=== PATIENT | male | born 1980 | race Caucasian/White ===

== ENCOUNTER 2017-11-22 17:19 | Inpatient (IN) | payer MEDICAID ==
[~2017-11-22] VITALS: Ht 182.9 cm; Wt 93.0 kg
[2017-11-22 17:26] VITALS: Ht 182.9 cm; Wt 93.0 kg
[2017-11-22 19:12] LABS: PLATELET COUNT 208 x10^3mcL (130-400)
[2017-11-22 19:20] LABS: RED CELL DISTRIBUTION WIDTH 22.6 % (11.5-14.5)
[2017-11-22 19:23] LABS: CALCIUM 8.2 mg/dL (8.5-10.1); CHLORIDE SERUM 94 mmol/L (98-107); CREATININE SERUM 0.9 mg/dL (0.7-1.3); GFR1 > 60 mL/min; GLUCOSE SERUM 82 mg/dL (74-106); SODIUM SERUM 133 mmol/L (136-145)
[2017-11-22 19:32] LABS: ALKALINE PHOSPHATASE 151 U/L (46-116); ALT/SGPT 72 U/L (16-63); AMYLASE 46 U/L (25-115); AST/SGOT 165 U/L (15-37); LIPASE 234 IU/L (73-393)
[2017-11-22 19:34] LABS: UA SPECIFIC GRAVITY 1.005 (1.005-1.035); microscopic required? YES
[2017-11-22 19:35] LABS: urine erythrocyte NEGATIVE (NEGATIVE)
[2017-11-22 19:43] LABS: BAND NEUTROPHIL 0 % (0-10); BASOPHIL 0 % (0-2); MONOCYTE 4 % (0-7); PLATELET MORPHOLOGY PLATELETS NORMAL; SEGMENTED NEUTROPHILS 84 % (37-75); rbc morphology (normal/abnorm) ABNORMAL (NORMAL)
[2017-11-22 19:55] LABS: ALBUMIN 1.8 g/dL (3.4-5.0)
[2017-11-22 19:57] LABS: BILIRUBIN TOTAL 21.5 mg/dL (0.20-1.00)
[2017-11-22 19:59] LABS: TOTAL PROTEIN, SERUM 6.2 g/dL (6.4-8.2)
[2017-11-23 00:55] VITALS: BP 117/77
[2017-11-23 01:05] LABS: MAGNESIUM 2.2 mg/dL (1.8-2.4)
[2017-11-23 01:14] LABS: FREE T4 1.03 ng/dL (0.76-1.46)
[2017-11-23 01:23] LABS: CHOLESTEROL/HDL RATIO 5.3
[2017-11-23 01:27] LABS: FREE THYROXINE INDEX 1.6 ug/dL (1.4-4.5); T4(THYROXINE) 3.8 ug/dL (4.7-13.3)
[2017-11-23 05:44] VITALS: BP 103/63
[2017-11-23 07:07] LABS: AMPHETAMINE QUAL UR NONE DETECTED (NEG <=1000)
[2017-11-23 07:20] LABS: PLATELET COUNT 180 x10^3mcL (130-400)
[2017-11-23 07:23] LABS: CALCIUM 7.7 mg/dL (8.5-10.1); CARBON DIOXIDE 30.5 mmol/L (21-32); CHLORIDE SERUM 95 mmol/L (98-107); CREATININE SERUM 0.9 mg/dL (0.7-1.3); GFR1 > 60 mL/min; GLUCOSE SERUM 87 mg/dL (74-106); POTASSIUM SERUM 3.7 mmol/L (3.5-5.1); SODIUM SERUM 133 mmol/L (136-145)
[2017-11-23 07:35] LABS: RED CELL DISTRIBUTION WIDTH 22.9 % (11.5-14.5)
[2017-11-23 09:31] LABS: T3 TOTAL 0.37 ng/mL
[2017-11-23 09:42] VITALS: BP 103/64
[2017-11-23 10:52] LABS: MONOCYTE 9 % (0-7); SEGMENTED NEUTROPHILS 47 % (37-75)
[2017-11-23 10:53] LABS: BAND NEUTROPHIL 25 % (0-10); BASOPHIL 0 % (0-2); MYELOCYTE 1 % (0-2)
[2017-11-23 10:55] LABS: rbc morphology (normal/abnorm) ABNORMAL (NORMAL); target cell (codocyte) 1+
[2017-11-23 19:20] VITALS: BP 95/61
[2017-11-24 06:25] VITALS: BP 96/57
[2017-11-24 06:58] LABS: CALCIUM 7.5 mg/dL (8.5-10.1); CHLORIDE SERUM 95 mmol/L (98-107); GFR1 > 60 mL/min; GLUCOSE SERUM 110 mg/dL (74-106); MAGNESIUM 2.6 mg/dL (1.8-2.4); PHOSPHOROUS 3.5 mg/dL (2.5-4.9); POTASSIUM SERUM 3.7 mmol/L (3.5-5.1); SODIUM SERUM 133 mmol/L (136-145)
[2017-11-24 08:57] LABS: PLATELET COUNT 165 x10^3mcL (130-400)
[2017-11-24 09:01] LABS: RED CELL DISTRIBUTION WIDTH 24.2 % (11.5-14.5)
[2017-11-24 09:15] VITALS: BP 90/47
[2017-11-24 11:57] LABS: MONOCYTE 4 % (0-7); SEGMENTED NEUTROPHILS 84 % (37-75)
[2017-11-24 11:58] LABS: ATYPICAL LYMPH 3 %; BAND NEUTROPHIL 5 % (0-10); BASOPHIL 0 % (0-2); PLATELET MORPHOLOGY PLATELETS DECREASED; rbc morphology (normal/abnorm) ABNORMAL (NORMAL)
[2017-11-24 12:25] VITALS: BP 104/64
[2017-11-24 16:55] VITALS: BP 96/59
[2017-11-24 19:20] VITALS: BP 101/55
[2017-11-25 05:33] VITALS: BP 96/61
[2017-11-25 06:52] LABS: PLATELET COUNT 185 x10^3mcL (130-400)
[2017-11-25 08:02] LABS: RED CELL DISTRIBUTION WIDTH 23.3 % (11.5-14.5)
[2017-11-25 09:15] LABS: CALCIUM 7.7 mg/dL (8.5-10.1); CARBON DIOXIDE 28.1 mmol/L (21-32); CHLORIDE SERUM 93 mmol/L (98-107); CREATININE SERUM 1.3 mg/dL (0.7-1.3); GFR1 > 60 mL/min; GLUCOSE SERUM 90 mg/dL (74-106); MAGNESIUM 2.9 mg/dL (1.8-2.4); PHOSPHOROUS 4.1 mg/dL (2.5-4.9); POTASSIUM SERUM 3.8 mmol/L (3.5-5.1); SODIUM SERUM 133 mmol/L (136-145)
[2017-11-25 09:16] VITALS: BP 103/63
[2017-11-25 12:16] LABS: BAND NEUTROPHIL 7 % (0-10); BASOPHIL 0 % (0-2); MONOCYTE 5 % (0-7); SEGMENTED NEUTROPHILS 82 % (37-75)
[2017-11-25 12:17] LABS: rbc morphology (normal/abnorm) ABNORMAL (NORMAL)
[2017-11-25 12:18] LABS: target cell (codocyte) 1+
[2017-11-25 13:50] VITALS: BP 106/62
[2017-11-25 16:56] VITALS: BP 109/60
[2017-11-25 20:35] VITALS: BP 101/59
[2017-11-26 06:10] VITALS: BP 100/62
[2017-11-26 08:02] LABS: PLATELET COUNT 205 x10^3mcL (130-400)
[2017-11-26 08:13] LABS: CALCIUM 7.6 mg/dL (8.5-10.1); CARBON DIOXIDE 27.1 mmol/L (21-32); CHLORIDE SERUM 94 mmol/L (98-107); CREATININE SERUM 1.2 mg/dL (0.7-1.3); GFR1 > 60 mL/min; GLUCOSE SERUM 125 mg/dL (74-106); MAGNESIUM 2.7 mg/dL (1.8-2.4); PHOSPHOROUS 3.4 mg/dL (2.5-4.9); SODIUM SERUM 131 mmol/L (136-145)
[2017-11-26 08:20] VITALS: BP 102/63
[2017-11-26 08:49] LABS: RED CELL DISTRIBUTION WIDTH 23.1 % (11.5-14.5)
[2017-11-26 12:39] LABS: ATYPICAL LYMPH 2 %; BAND NEUTROPHIL 4 % (0-10); BASOPHIL 0 % (0-2); MONOCYTE 5 % (0-7); SEGMENTED NEUTROPHILS 83 % (37-75)
[2017-11-26 12:41] LABS: PLATELET MORPHOLOGY PLATELETS DECREASED; rbc morphology (normal/abnorm) ABNORMAL (NORMAL); target cell (codocyte) 2+
[2017-11-26 13:16] VITALS: BP 113/67
[2017-11-26 16:50] VITALS: BP 109/68
[2017-11-26 21:33] VITALS: BP 101/59
[2017-11-27 06:03] VITALS: BP 98/50
[2017-11-27 07:06] LABS: CALCIUM 7.2 mg/dL (8.5-10.1); CARBON DIOXIDE 26.4 mmol/L (21-32); CHLORIDE SERUM 96 mmol/L (98-107); CREATININE SERUM 1.2 mg/dL (0.7-1.3); GFR1 > 60 mL/min; GLUCOSE SERUM 112 mg/dL (74-106); MAGNESIUM 2.5 mg/dL (1.8-2.4); PHOSPHOROUS 2.9 mg/dL (2.5-4.9); POTASSIUM SERUM 3.4 mmol/L (3.5-5.1); SODIUM SERUM 131 mmol/L (136-145)
[2017-11-27 07:39] LABS: PLATELET COUNT 197 x10^3mcL (130-400)
[2017-11-27 07:40] LABS: RED CELL DISTRIBUTION WIDTH 21.8 % (11.5-14.5)
[2017-11-27 09:43] VITALS: BP 95/62
[2017-11-27 09:46] LABS: ATYPICAL LYMPH 2 %; BAND NEUTROPHIL 4 % (0-10); BASOPHIL 0 % (0-2); MONOCYTE 6 % (0-7); SEGMENTED NEUTROPHILS 80 % (37-75)
[2017-11-27 09:48] LABS: rbc morphology (normal/abnorm) ABNORMAL (NORMAL); target cell (codocyte) 1+
[2017-11-27 09:49] LABS: burr cell (echinocyte) 1+
[2017-11-27] MEDS ORDERED: CIPRO500 MG PO (11:14)
[2017-11-27] MEDS ORDERED: FOL1 PO (11:27)
[2017-11-27 11:46] VITALS: BP 95/62
[2017-11-27] MEDS ORDERED: LAC PO (12:29)
[2017-11-27] MEDS ORDERED: ALD50 PO (12:30)
[2017-11-27] MEDS ORDERED: L40 PO (12:30)
[2017-11-27] MEDS ORDERED: THERAGRAN-M1 TA4 PO (12:30)
[2017-11-27] MEDS ORDERED: THI100 PO (12:30)
== END 2017-11-27 13:20 | disposition home or self-care (01) | DRG 280 ==
LOC: ED 17:19 → DU 23:36
PROVIDERS: Emergency Medicine; Family Medicine
DX: K70.31 Alcoholic cirrhosis of liver with ascites (principal); N17.0 Acute kidney failure with tubular necrosis; E43 Unspecified severe protein-calorie malnutrition; E87.8 Other disorders of electrolyte and fluid balance, not elsewhere classified; K65.2 Spontaneous bacterial peritonitis; E87.1 Hypo-osmolality and hyponatremia; F10.239 Alcohol dependence with withdrawal, unspecified; E87.6 Hypokalemia; E83.51 Hypocalcemia; E78.1 Pure hyperglyceridemia; E02 Subclinical iodine-deficiency hypothyroidism; D64.9 Anemia, unspecified; E83.41 Hypermagnesemia; Z68.28 Body mass index [BMI] 28.0-28.9, adult
CPT/HCPCS: 83880; 84439; G0480; J0696; J1885; J1940; J2270; J2405; J2543; J3010; J3411; J3475; J3480; J3490; J7030; Q0092

== ENCOUNTER 2017-11-28 12:08 | Inpatient (IN) | payer MEDICAID ==
[~2017-11-28] VITALS: Ht 185.4 cm; Wt 106.7 kg
[~2017-11-28 12:08] MED LIST: ALD50 PO; CIPRO500 MG PO; FOL1 PO; L40 PO; LAC PO; THERAGRAN-M1 TA4 PO; THI100 PO
[2017-11-28 12:12] VITALS: Ht 185.4 cm; Wt 106.7 kg
[2017-11-28 13:00] LABS: PLATELET COUNT 243 x10^3mcL (130-400)
[2017-11-28 13:10] LABS: CALCIUM 7.4 mg/dL (8.5-10.1); CARBON DIOXIDE 24.3 mmol/L (21-32); CREATININE SERUM 2.3 mg/dL (0.7-1.3); POTASSIUM SERUM 3.5 mmol/L (3.5-5.1); RED CELL DISTRIBUTION WIDTH 20.9 % (11.5-14.5)
[2017-11-28 13:26] LABS: microscopic required? YES; urine erythrocyte 3+ (NEGATIVE)
[2017-11-28 13:31] LABS: ALBUMIN 1.5 g/dL (3.4-5.0); TOTAL PROTEIN, SERUM 5.6 g/dL (6.4-8.2)
[2017-11-28 13:32] LABS: BILIRUBIN TOTAL 23.37 mg/dL (0.20-1.00)
[2017-11-28 14:58] LABS: BAND NEUTROPHIL 9 % (0-10); BASOPHIL 0 % (0-2); METAMYELOCTE 1 % (0-2); MONOCYTE 6 % (0-7); MYELOCYTE 1 % (0-2); SEGMENTED NEUTROPHILS 71 % (37-75)
[2017-11-28 15:00] LABS: rbc morphology (normal/abnorm) ABNORMAL (NORMAL)
[2017-11-28 15:01] LABS: target cell (codocyte) 2+
[2017-11-28 15:04] LABS: PLATELET MORPHOLOGY PLATELETS NORMAL
[2017-11-29 06:32] LABS: AMPHETAMINE QUAL UR NONE DETECTED (NEG <=1000)
[2017-11-29 13:06] VITALS: BP 100/57
[2017-11-29 13:10] LABS: PLATELET COUNT 239 x10^3mcL (130-400); RED CELL DISTRIBUTION WIDTH 20.5 % (11.5-14.5)
[2017-11-29 13:18] LABS: CALCIUM 7.3 mg/dL (8.5-10.1); CARBON DIOXIDE 22.3 mmol/L (21-32); POTASSIUM SERUM 3.7 mmol/L (3.5-5.1)
[2017-11-29 13:29] VITALS: BP 109/68
[2017-11-29 13:42] LABS: BAND NEUTROPHIL 10 % (0-10); METAMYELOCTE 2 % (0-2); MONOCYTE 6 % (0-7); MYELOCYTE 1 % (0-2); SEGMENTED NEUTROPHILS 74 % (37-75); rbc morphology (normal/abnorm) ABNORMAL (NORMAL)
[2017-11-29 13:43] LABS: target cell (codocyte) 2+
[2017-11-29 17:16] VITALS: BP 101/58
[2017-11-30 06:21] LABS: CALCIUM 7.5 mg/dL (8.5-10.1); CARBON DIOXIDE 22.4 mmol/L (21-32); CREATININE SERUM 3.1 mg/dL (0.7-1.3); POTASSIUM SERUM 4.8 mmol/L (3.5-5.1)
[2017-11-30 06:43] VITALS: BP 110/59
[2017-11-30 06:49] LABS: PLATELET COUNT 240 x10^3mcL (130-400)
[2017-11-30 07:45] LABS: RED CELL DISTRIBUTION WIDTH 20.5 % (11.5-14.5)
[2017-11-30 08:59] VITALS: BP 116/78
[2017-11-30 11:40] LABS: BAND NEUTROPHIL 13 % (0-10); METAMYELOCTE 2 % (0-2); MYELOCYTE 2 % (0-2); SEGMENTED NEUTROPHILS 70 % (37-75)
[2017-11-30 11:41] LABS: MONOCYTE 6 % (0-7); rbc morphology (normal/abnorm) ABNORMAL (NORMAL); target cell (codocyte) 2+
[2017-11-30 13:35] VITALS: BP 129/76
[2017-11-30 16:46] VITALS: BP 105/69
[2017-11-30 20:22] VITALS: BP 112/72
[2017-12-01 05:27] VITALS: BP 132/75; BP 95/61
[2017-12-01 06:20] LABS: PLATELET COUNT 225 x10^3mcL (130-400)
[2017-12-01 06:42] LABS: BILIRUBIN DIRECT 20.19 mg/dL (0.0-0.2); CALCIUM 7.8 mg/dL (8.5-10.1); CARBON DIOXIDE 22.9 mmol/L (21-32); CREATININE SERUM 2.9 mg/dL (0.7-1.3)
[2017-12-01 06:44] LABS: ALBUMIN 2.4 g/dL (3.4-5.0); TOTAL PROTEIN, SERUM 5.5 g/dL (6.4-8.2)
[2017-12-01 06:46] LABS: BILIRUBIN TOTAL 26.44 mg/dL (0.20-1.00)
[2017-12-01 06:58] LABS: RED CELL DISTRIBUTION WIDTH 20.3 % (11.5-14.5)
[2017-12-01 09:37] VITALS: BP 119/78
[2017-12-01 10:48] LABS: ATYPICAL LYMPH 2 %; BAND NEUTROPHIL 4 % (0-10); BASOPHIL 0 % (0-2); MONOCYTE 9 % (0-7); SEGMENTED NEUTROPHILS 76 % (37-75)
[2017-12-01 10:50] LABS: PLATELET MORPHOLOGY PLATELETS NORMAL; rbc morphology (normal/abnorm) ABNORMAL (NORMAL)
[2017-12-01 14:01] VITALS: BP 126/83
[2017-12-01 17:36] VITALS: BP 108/60
[2017-12-01 21:21] VITALS: BP 124/69
[2017-12-02 06:03] VITALS: BP 109/75
[2017-12-02 06:50] LABS: PLATELET COUNT 205 x10^3mcL (130-400)
[2017-12-02 06:53] LABS: CALCIUM 8.4 mg/dL (8.5-10.1); CARBON DIOXIDE 21.5 mmol/L (21-32); CREATININE SERUM 3.3 mg/dL (0.7-1.3); POTASSIUM SERUM 4.1 mmol/L (3.5-5.1)
[2017-12-02 07:01] LABS: RED CELL DISTRIBUTION WIDTH 19.3 % (11.5-14.5)
[2017-12-02 09:23] VITALS: BP 130/73
[2017-12-02 09:27] LABS: BAND NEUTROPHIL 14 % (0-10); BASOPHIL 0 % (0-2); METAMYELOCTE 2 % (0-2); MONOCYTE 9 % (0-7); MYELOCYTE 2 % (0-2); SEGMENTED NEUTROPHILS 63 % (37-75)
[2017-12-02 09:28] LABS: PLATELET MORPHOLOGY PLATELETS NORMAL; rbc morphology (normal/abnorm) ABNORMAL (NORMAL)
[2017-12-02 09:29] LABS: burr cell (echinocyte) 1+; target cell (codocyte) 2+
[2017-12-02 12:20] VITALS: BP 109/65
[2017-12-02 17:33] VITALS: BP 105/65
[2017-12-02 21:00] VITALS: BP 112/62
[2017-12-02] MEDS ORDERED: ATI1 PO (21:29)
[2017-12-02] MEDS ORDERED: PRI20 PO (21:33)
[2017-12-02] MEDS ORDERED: LAC30L PO (21:33)
[2017-12-03 05:23] VITALS: BP 110/63
[2017-12-03 08:38] VITALS: BP 131/74
[2017-12-03 09:26] LABS: PLATELET COUNT 198 x10^3mcL (130-400)
[2017-12-03 09:27] LABS: RED CELL DISTRIBUTION WIDTH 20.3 % (11.5-14.5)
[2017-12-03 09:33] LABS: CALCIUM 8.4 mg/dL (8.5-10.1); CARBON DIOXIDE 21.9 mmol/L (21-32); POTASSIUM SERUM 4.2 mmol/L (3.5-5.1)
[2017-12-03 09:48] LABS: BAND NEUTROPHIL 10 % (0-10); BASOPHIL 0 % (0-2); METAMYELOCTE 2 % (0-2); MONOCYTE 7 % (0-7); MYELOCYTE 1 % (0-2); SEGMENTED NEUTROPHILS 70 % (37-75)
[2017-12-03 09:49] LABS: PLATELET MORPHOLOGY PLATELETS NORMAL; rbc morphology (normal/abnorm) ABNORMAL (NORMAL)
[2017-12-03 09:50] LABS: burr cell (echinocyte) 1+; tear drop cell (dacryocyte) 1+
[2017-12-03 09:56] LABS: CREATININE SERUM 4.4 mg/dL (0.7-1.3)
[2017-12-03] MEDS ORDERED: DILAUDID2 MG PO (17:00)
[2017-12-03 18:08] VITALS: BP 131/74
== END 2017-12-03 20:59 | disposition hospice, home (50) | DRG 720 ==
LOC: ED 12:08 → DU 11-29 08:59
PROVIDERS: Emergency Medicine; Family Medicine; Internal Medicine Gastroenterology
DX: A41.9 Sepsis, unspecified organism (principal); K76.7 Hepatorenal syndrome; E43 Unspecified severe protein-calorie malnutrition; N17.9 Acute kidney failure, unspecified; D68.9 Coagulation defect, unspecified; E87.8 Other disorders of electrolyte and fluid balance, not elsewhere classified; E87.1 Hypo-osmolality and hyponatremia; K70.31 Alcoholic cirrhosis of liver with ascites; K92.2 Gastrointestinal hemorrhage, unspecified; R65.20 Severe sepsis without septic shock; N39.0 Urinary tract infection, site not specified; R31.9 Hematuria, unspecified; E80.6 Other disorders of bilirubin metabolism; E83.51 Hypocalcemia; E83.41 Hypermagnesemia; E88.09 Other disorders of plasma-protein metabolism, not elsewhere classified; L40.0 Psoriasis vulgaris; Z68.27 Body mass index [BMI] 27.0-27.9, adult; D64.9 Anemia, unspecified; F10.20 Alcohol dependence, uncomplicated; Y90.9 Presence of alcohol in blood, level not specified
CPT/HCPCS: 83880; G0480; J0696; J2354; J2405; J3010; J3430; J3490; J7030; J7040; J7042; J7070; P9047; Q0092